=== PATIENT | male | born 1985 | race Caucasian/White ===

== ENCOUNTER 2017-03-05 16:10 | Emergency (ER) | payer OTHER ==
[2017-03-05 16:24] VITALS: RESP 18; TEMP 99.1
[2017-03-05] MEDS ORDERED: NS 1,000 ML IV ONE ×3 (17:22→19:23)
--- NOTE | 2017-03-05 17:22 | EDPHY ---
H & P Time Seen by Provider: 03/05/17 17:21 HPI/ROS: Chief complaint. Chest pain HPI. 31-year-old male presents emergency department with left anterior chest pain near his anterior axilla. Symptoms began about 1:00 p.m. today. He also felt that he had some heart palpitations. Patient describes the pain is dull without radiation. Slight shortness of breath earlier but not now. Patient is visiting from [place]. Last night he drank alcohol and took an apple. This morning he had some nausea vomiting though the symptoms have resolved. He has been exposed to bronchitis and his boyfriend has been on antibiotics for lung infection. Patient denies any exacerbating factors to his chest discomfort. It is not worse with exertion, deep breathing or range of motion. He did have a muscle spasm in his left calf last night though not today. And there has been no swelling. ROS Constitutional. no fever/chills, no weakness Eyes. no problems with vision ENT. no sore throat, no nasal drainage Cardiovascular. Chest pain Respiratory. Shortness of breath earlier Abdominal. Vomiting earlier this morning . no problems urinating MS. calf cramp yesterday Skin. no rash Lymph. no swollen glands Neuro. no headache, no dizziness, no difficulty walking or with speech Past Medical/Surgical History: Denies past medical history family history father had an NC at age 58 Social History: Single, nonsmoker, no alcohol since last night Smoking Status: Former smoker Physical Exam: General Appearance: Alert well-developed male mild distress vital signs are stable Eyes: Pupils equal and round no pallor or injection. ENT, Mouth: Mucous membranes are moist. Respiratory: There are no retractions, lungs are clear to auscultation. Cardiovascular: Regular rate and rhythm. Gastrointestinal: Abdomen is soft and nontender, no masses, bowel sounds normal. Neurological: Awake and alert, sensory and motor exams grossly normal. Skin: Warm and dry, no rashes. Musculoskeletal: Neck is supple nontender. Extremities symmetrical, full range of motion. Psychiatric: Patient is oriented X 3, there is no agitation. Constitutional: Initial Vital Signs Temperature (C) 37.3 C 03/05/17 16:22 Heart Rate 92 03/05/17 16:22 Respiratory Rate 18 03/05/17 16:22 Blood Pressure 134/93 H 03/05/17 16:22 O2 Sat (%) 98 03/05/17 16:22 O2 Delivery Mode Room Air Allergies/Adverse Reactions: azithromycin [From Zithromax Z-Mohit] Allergy (Intermediate, Verified 03/05/17 16: 24) Hives Home Medications: Medication Instructions Recorded NK [No Known Home Meds] 03/05/17 Medical Decision Making - Diagnostics EKG Interpretation: EKG interpreted by me shows normal sinus rhythm normal interval and axis. QRS is normal there is no significant ST elevation or depression. Slight sinus arrhythmia. Rate varies between 60 and 92. Imaging Results: Imaging Impressions Chest X-Ray 03/05/17 17:22 Impression: Nothing acute identified. Chest x-ray interpreted by me as normal Procedures: IV normal saline, monitor ED Course/Re-evaluation: Evaluations. Patient and I discussed imaging, EKG, lab results. We discussed treatment plan including criteria for return importance of follow-up and further evaluation. He expresses understanding and agreement. Patient is scheduled to return to [place] tomorrow and he is encouraged to return sooner for worsening symptoms and follow up with his regular physician upon return home to [place] Differential Diagnosis: I considered acute coronary syndrome as there is some family history. I considered pulmonary embolus as the patient has traveled from [place] and had leg cramps last night. I have considered musculoskeletal which I think this is most likely. He has 2 negative serial troponins. He has a negative D-dimer. - Data Points Laboratory Results: Laboratory Results 03/05/17 17:45 03/05/17 17:40 03/05/17 03/05/17 03/05/17 19:25 17:45 17:40 WBC 8.34 10^3/uL 10^3/uL (3.80-9.50) RBC 5.20 10^6/uL 10^6/uL (4.40-6.38) Hgb 16.9 g/dL g/dL (13.7-17.5) Hct 48.2 % % (40.0-51.0) MCV 92.7 fL fL (81.5-99.8) MCH 32.5 pg pg (27.9-34.1) MCHC 35.1 g/dL g/dL (32.4-36.7) RDW 13.0 % % (11.5-15.2) Plt Count 254 10^3/uL 10^3/uL (150-400) MPV 9.8 fL fL (8.7-11.7) Neut % (Auto) 53.8 % % (39.3-74.2) Lymph % (Auto) 33.7 % % (15.0-45.0) [place] % (Auto) 11.2 % % (4.5-13.0) Eos % (Auto) 0.2 % L % (0.6-7.6) Baso % (Auto) 0.6 % % (0.3-1.7) Nucleat RBC Rel Count 0.0 % % (0.0-0.2) Absolute Neuts (auto) 4.49 10^3/uL 10^3/uL (1.70-6.50) Absolute Lymphs (auto) 2.81 10^3/uL 10^3/uL (1.00-3.00) Absolute Monos (auto) 0.93 10^3/uL H 10^3/uL (0.30-0.80) Absolute Eos (auto) 0.02 10^3/uL L 10^3/uL (0.03-0.40) Absolute Basos (auto) 0.05 10^3/uL 10^3/uL (0.02-0.10) Absolute Nucleated RBC 0.00 10^3/uL 10^3/uL (0-0.01) Immature Gran % 0.5 % % (0.0-1.1) Immature Gran # 0.04 10^3/uL 10^3/uL (0.00-0.10) D-Dimer Sodium 141 mEq/L mEq/L (134-144) Potassium 3.9 mEq/L mEq/L (3.5-5.2) Chloride 101 mEq/L mEq/L (97-110) Carbon Dioxide 27 mEq/l mEq/l (22-31) Anion Gap 13 mEq/L mEq/L (8-16) BUN 7 mg/dL mg/dL (7-23) Creatinine 0.9 mg/dL mg/dL (0.7-1.3) Estimated GFR > 60 Glucose 100 mg/dL mg/dL (70-100) Calcium 9.7 mg/dL mg/dL (8.5-10.4) Troponin I < 0.012 ng/mL ng/mL < 0.012 ng/mL ng/mL (0.000-0.034) (0.000-0.034) 03/05/17 17:40 WBC RBC Hgb Hct MCV MCH MCHC RDW Plt Count MPV Neut % (Auto) Lymph % (Auto) [place] % (Auto) Eos % (Auto) Baso % (Auto) Nucleat RBC Rel Count Absolute Neuts (auto) Absolute Lymphs (auto) Absolute Monos (auto) Absolute Eos (auto) Absolute Basos (auto) Absolute Nucleated RBC Immature Gran % Immature Gran # D-Dimer < 0.27 ug/mLFEU ug/mLFEU (0.00-0.50) Sodium Potassium Chloride Carbon Dioxide Anion Gap BUN Creatinine Estimated GFR Glucose Calcium Troponin I Medications Given: Discontinued Medications Sodium Chloride (Ns) 1,000 mls @ 0 mls/hr IV EDNOW ONE; Wide Open PRN Reason: Protocol Stop: 03/05/17 17:23 Last Admin: 03/05/17 17:58 Dose: 1,000 mls Sodium Chloride (Ns) 1,000 mls @ 0 mls/hr IV EDNOW ONE; Wide Open PRN Reason: Protocol Stop: 03/05/17 19:24 Last Admin: 03/05/17 19:30 Dose: 1,000 mls Sodium Chloride (Ns) 1,000 mls @ 0 mls/hr IV EDNOW ONE; Wide Open PRN Reason: Protocol Stop: 03/05/17 19:24 Last Admin: 03/05/17 19:30 Dose: 1,000 mls Ketorolac Tromethamine (Toradol) 30 mg IVP EDNOW ONE Stop: 03/05/17 19:24 Last Admin: 03/05/17 19:30 Dose: 30 mg Departure - Departure Disposition: Home, Routine, Self-Care Clinical Impression: Chest pain Qualifiers: Chest pain type: precordial pain Qualified Code(s): R07.2 - Precordial pain Condition: Good Instructions: Chest Wall Pain (ED) Additional Instructions: Heat to chest wall. Ibuprofen 600 mg every 6 hr for discomfort. Return for worsening symptoms. Recheck in 1 day if not improving. Follow up with your regular physician upon return to [place]. Referrals: NONE *PRIMARY CARE P,. [Primary Care Provider] - As per Instructions
--- NOTE | 2017-03-05 17:41 | CPEKG ---
Heart Rate: 78 RR Interval: 769 P-R Interval: 124 QRSD Interval: 88 QT Interval: 360 QTC Interval: 411 P [place]: 42 QRS [place]: -4 T Wave [place]: 26 EKG Severity - OTHERWISE NORMAL ECG - EKG Impression: SINUS ARRHYTHMIA, RATE 60-92 Electronically Signed By: Tylor Mixon 05-Mar-2017 17:57:18
[2017-03-05 18:07] LABS: % IMMATURE GRANULYOCYTES 0.5 % (0.0-1.1); ABSOLUTE IMMATURE GRANULOCYTES 0.04 10^3/uL (0.00-0.10); ADD DIFF? NO; ADD MORPH? NO; ADD SCAN? NO; ATYPICAL LYMPHOCYTE FLAG 40 (0-99); FRAGMENT RBC FLAG 0 (0-99); HEMATOCRIT 48.2 % (40.0-51.0); HEMOGLOBIN 16.9 g/dL (13.7-17.5); LEFT SHIFT FLG 0 (0-99); LIPEMIA HEMOLYSIS FLAG 90 (0-99); MEAN CELL HEMOGLOBIN 32.5 pg (27.9-34.1); MEAN CELL HEMOGLOBIN CONCENTR. 35.1 g/dL (32.4-36.7); MEAN CELL VOLUME 92.7 fL (81.5-99.8); MEAN PLATELET VOLUME 9.8 fL (8.7-11.7); PLATELET CLUMPS FLAG 0 (0-99); PLATELET COUNT 254 10^3/uL (150-400)
[2017-03-05 18:17] LABS: ANION GAP 13 mEq/L (8-16); CALCIUM 9.7 mg/dL (8.5-10.4); CARBON DIOXIDE 27 mEq/l (22-31); CHLORIDE 101 mEq/L (97-110); CREATININE 0.9 mg/dL (0.7-1.3); GLOMERULAR FILTRATION RATE > 60; GLUCOSE 100 mg/dL (70-100); POTASSIUM 3.9 mEq/L (3.5-5.2); SODIUM 141 mEq/L (134-144)
[2017-03-05 18:28] LABS: TROPONIN I < 0.012 ng/mL (0.000-0.034)
[2017-03-05] MEDS ORDERED: KETOROLAC 30 MG/1 ML SDV IVP ONE (19:23)
[2017-03-05 20:45] VITALS: BP 132/81; PULSE 67; O2SAT 94
== END 2017-03-05 20:45 | disposition home or self-care (01) ==
DX: R07.2 Precordial pain (principal); E86.9 Volume depletion, unspecified; Z87.891 Personal history of nicotine dependence
CPT/HCPCS: 96374; J1885